=== PATIENT | female | born 1950 | race Caucasian/White ===

== ENCOUNTER → 2016-12-14 | Outpatient (CLI) | payer OTHER, MEDICARE ==
[~2016-12-14] MED LIST: ACIDOPHILUS1 EACH PO; ALBUTEROL2.5 MG/0.5 INH; AMITRIPTYLINE H25 M2 PO; AMLODIPINE BESY10 MG PO; ASPIR 8181 M1 PO; BYSTOLIC 5 MG5 M1 PO; CATHFLO ACT2 MG/VIA1 IV PUSH; CLOBETASOL EMOL15 GM TOP; COLACE100 MG PO; CUBICIN500 MG IVPB; CYMBALTA60 MG PO; DUONEB 2.5-0.5 M3 ML INH; GENTAMICIN 0.1%15 G2 TOP; HYDROCHLOROTHIA25 M2 PO; HYDROXYZINE HCL25 M2 PO; LOPERAMIDE 2 MG2 M1 PO; MILK OF MA2400 MG/10 PO; MOBIC15 MG PO; MULTIVITAMINS1 EAC7 PO; NEURONTIN 300300 M1 PO; NORTRIPTYLINE H50 M3 PO; ONDANSETRON HCL4 M2 PO; OXYCODONE HCL 55 MG PO; OXYCONTIN10 M1 PO; OXYCONTIN20 M1 PO; PARAFON FORTE500 MG PO; PAXIL10 MG; PERCOCET 10-321 EACH PO; PERCOCET PO; REMERON15 MG PO; ROBAXIN 750 MG750 M1 PO; SENNA PO; TYLENOL325 MG PO; VANCOCIN 125 M125 M1 MC; VANCOMYCIN HCL 11 G2 IVPB; VANCOMYCIN HCL1 GM IVPB; VISTARIL 25 MG25 M1 PO; VITAMIN D1000 UNIT PO; VITAMIN D31000 UNI2 PO
== END ==
LOC: RAD 07:15 → MRI 14:31
DX: M47.896 Other spondylosis, lumbar region (principal); G83.4 Cauda equina syndrome; G91.2 (Idiopathic) normal pressure hydrocephalus; Z98.890 Other specified postprocedural states

== ENCOUNTER → 2016-12-22 | Outpatient (CLI) | payer OTHER, MEDICARE | LOC: MRI 02:33 | DX: M48.04 Spinal stenosis, thoracic region (principal); G91.9 Hydrocephalus, unspecified; Z98.2 Presence of cerebrospinal fluid drainage device ==

== ENCOUNTER → 2017-02-18 | Outpatient (CLI) | payer OTHER, MEDICARE ==
[2017-02-18 11:25] LABS: CALCIUM 9.7 mg/dL (8.5-10.1); CREATININE 0.9 mg/dL (0.6-1.0); POTASSIUM 4.3 mmol/L (3.5-5.1)
== END ==
LOC: CAT 10:40
PROVIDERS: Internal Medicine
DX: Z01.812 Encounter for preprocedural laboratory examination (principal); I73.9 Peripheral vascular disease, unspecified

== ENCOUNTER → 2019-08-07 | Outpatient (CLI) | payer OTHER, MEDICARE ==
[~2019-08-07] MED LIST changes: +CENTRUM SILVER1 EAC4 PO; +CHOLESTYRAMINE P4 GM PO; +EDARBI40 MG PO; +KEFLEX500 MG PO; +NEURONTIN600 MG PO; +PLAVIX 75 MG TA75 MG PO; +PROBIOTIC1 EAC1 PO; +ROXICODONE5 M2 PO; +TORSEMIDE20 MG PO; +VITAL REDS PO
== END ==
LOC: RAD 16:21
DX: R07.9 Chest pain, unspecified (principal); M43.26 Fusion of spine, lumbar region; M47.815 Spondylosis without myelopathy or radiculopathy, thoracolumbar region

== ENCOUNTER → 2019-12-05 | Outpatient (CLI) | payer OTHER, MEDICARE | LOC: SJCVCIMAG 10-15 08:37 | PROVIDERS: ATTEND Internal Medicine | DX: I08.3 Combined rheumatic disorders of mitral, aortic and tricuspid valves (principal); R94.31 Abnormal electrocardiogram [ECG] [EKG]; I11.0 Hypertensive heart disease with heart failure; I50.32 Chronic diastolic (congestive) heart failure; E11.9 Type 2 diabetes mellitus without complications; E78.5 Hyperlipidemia, unspecified; I73.9 Peripheral vascular disease, unspecified; G47.33 Obstructive sleep apnea (adult) (pediatric); Z79.899 Other long term (current) drug therapy; Z82.49 Family history of ischemic heart disease and other diseases of the circulatory system ==

== ENCOUNTER → 2020-05-22 | Outpatient (CLI) | payer OTHER, MEDICARE | LOC: SJCVCIMAG 09:01 | PROVIDERS: ATTEND Internal Medicine | DX: I49.3 Ventricular premature depolarization (principal); I11.0 Hypertensive heart disease with heart failure; I50.32 Chronic diastolic (congestive) heart failure; E78.5 Hyperlipidemia, unspecified; I73.9 Peripheral vascular disease, unspecified; G47.33 Obstructive sleep apnea (adult) (pediatric); Z79.82 Long term (current) use of aspirin; Z79.899 Other long term (current) drug therapy; Z82.49 Family history of ischemic heart disease and other diseases of the circulatory system ==

== ENCOUNTER → 2020-12-09 | Outpatient (CLI) | payer OTHER, MEDICARE | LOC: SJCVCIMAG 11:15 | PROVIDERS: ATTEND Internal Medicine | DX: I08.3 Combined rheumatic disorders of mitral, aortic and tricuspid valves (principal); I48.91 Unspecified atrial fibrillation; I11.0 Hypertensive heart disease with heart failure; I50.9 Heart failure, unspecified ==

== ENCOUNTER → 2021-01-27 | Outpatient (CLI) | payer OTHER, MEDICARE | LOC: SJCVC 14:19 | PROVIDERS: ATTEND Internal Medicine | DX: I49.9 Cardiac arrhythmia, unspecified (principal); I11.0 Hypertensive heart disease with heart failure; I50.32 Chronic diastolic (congestive) heart failure; I77.9 Disorder of arteries and arterioles, unspecified; I35.0 Nonrheumatic aortic (valve) stenosis; I77.1 Stricture of artery; E78.00 Pure hypercholesterolemia, unspecified; I73.9 Peripheral vascular disease, unspecified; G47.33 Obstructive sleep apnea (adult) (pediatric); Z79.82 Long term (current) use of aspirin; Z79.899 Other long term (current) drug therapy; Z82.49 Family history of ischemic heart disease and other diseases of the circulatory system ==

== ENCOUNTER 2021-02-09 15:31 | Emergency (ER) | payer OTHER, MEDICARE ==
[~2021-02-09] VITALS: Ht 162.6 cm; Wt 94.3 kg
[2021-02-09 16:10] LABS: ABSOLUTE NEUTROPHILS 6.5 thou/uL (1.4-8.2); BASOPHILS 1.3 % (0.0-2.0); EOSINOPHILS 3.5 % (0.0-3.0); HEMATOCRIT 37.5 % (37.0-47.0); HEMOGLOBIN 12.2 gm/dL (12.0-15.0); LYMPHOCYTES 21.1 % (24.0-44.0); MCH 27.1 pg (26.0-34.0); MCHC 32.6 g/dL (28.0-37.0); MCV 82.9 fL (80.0-100.0); MONOCYTES 8.6 % (1.0-8.0); PLATELET COUNT 287 thou/uL (150-400); POLYS 65.5 % (36.0-66.0); RBC 4.52 mil/uL (4.20-5.00); RDW 14.6 % (10.5-14.5); WBC 9.9 thou/uL (4.0-11.0)
[2021-02-09 16:20] LABS: CALCIUM 9.1 mg/dL (8.5-10.1); CREATININE 1.4 mg/dL (0.6-1.0); POTASSIUM 3.1 mmol/L (3.5-5.1)
[2021-02-09 16:25] LABS: ALBUMIN 3.7 g/dL (3.4-5.0); TOTAL BILIRUBIN 0.4 mg/dL (0.2-1.0); TOTAL PROTEIN 7.5 g/dL (6.4-8.2)
[2021-02-09 18:10] LABS: URINE BILIRUBIN NEGATIVE (Negative); URINE BLOOD 1+ (Negative); URINE CLARITY CLEAR; URINE COLOR YELLOW; URINE GLUCOSE-RANDOM* NEGATIVE (Negative); URINE KETONES NEGATIVE (Negative); URINE LEUKOCYTES-REFLEX TRACE (Negative); URINE NITRITE-REFLEX NEGATIVE (Negative); URINE PROTEIN (DIPSTICK) NEGATIVE (Negative); URINE UROBILINOGEN 0.2 E.U./dl (0.2-1.0)
[2021-02-09 18:44] LABS: BACTERIA-REFLEX 1-9 Few /HPF (None Seen); CASTS None Seen /LPF (None Seen); CRYSTALS None Seen /LPF (None Seen); SQUAMOUS 0-3 Few /LPF (0-3); URINE RBC 1-2 Rare /HPF (NONE SEEN); URINE WBC-REFLEX 0-5 Rare /HPF (0-5)
[2021-02-09 18:47] VITALS: BP 151/74
== END 2021-02-09 18:49 | disposition home or self-care (01) ==
LOC: ER 15:31
PROVIDERS: Student in an Organized Health Care Education/Training Program
DX: K92.1 Melena (principal); R10.30 Lower abdominal pain, unspecified; G25.81 Restless legs syndrome; I50.9 Heart failure, unspecified; I11.0 Hypertensive heart disease with heart failure; Z88.1 Allergy status to other antibiotic agents; Z88.6 Allergy status to analgesic agent; Z88.8 Allergy status to other drugs, medicaments and biological substances; Z79.899 Other long term (current) drug therapy

== ENCOUNTER → 2021-04-13 | Outpatient (CLI) | payer OTHER, MEDICARE | LOC: SJCVC 13:53 | PROVIDERS: ATTEND Internal Medicine | DX: R00.1 Bradycardia, unspecified (principal); I35.0 Nonrheumatic aortic (valve) stenosis; I50.32 Chronic diastolic (congestive) heart failure; I11.0 Hypertensive heart disease with heart failure; I73.9 Peripheral vascular disease, unspecified; I77.1 Stricture of artery; I65.29 Occlusion and stenosis of unspecified carotid artery; E78.00 Pure hypercholesterolemia, unspecified; F41.9 Anxiety disorder, unspecified; G47.33 Obstructive sleep apnea (adult) (pediatric); E78.5 Hyperlipidemia, unspecified; Z79.82 Long term (current) use of aspirin; Z79.899 Other long term (current) drug therapy; Z72.89 Other problems related to lifestyle; Z88.8 Allergy status to other drugs, medicaments and biological substances; Z82.49 Family history of ischemic heart disease and other diseases of the circulatory system; Z88.2 Allergy status to sulfonamides; Z88.1 Allergy status to other antibiotic agents; Z79.891 Long term (current) use of opiate analgesic ==

== ENCOUNTER → 2021-05-19 | Outpatient (CLI) | payer OTHER, MEDICARE | LOC: SJCVC 11:29 | PROVIDERS: ATTEND Internal Medicine | DX: R94.31 Abnormal electrocardiogram [ECG] [EKG] (principal); I44.0 Atrioventricular block, first degree; R00.1 Bradycardia, unspecified; I11.0 Hypertensive heart disease with heart failure; I50.32 Chronic diastolic (congestive) heart failure; E78.5 Hyperlipidemia, unspecified; I73.9 Peripheral vascular disease, unspecified; I77.1 Stricture of artery; I65.23 Occlusion and stenosis of bilateral carotid arteries; Z79.82 Long term (current) use of aspirin; Z98.890 Other specified postprocedural states; Z79.899 Other long term (current) drug therapy; Z88.1 Allergy status to other antibiotic agents; Z88.2 Allergy status to sulfonamides; Z88.5 Allergy status to narcotic agent; Z91.048 Other nonmedicinal substance allergy status ==